=== PATIENT | female | born 1995 | race Two or more races ===

== ENCOUNTER 2022-02-26 04:44 | Emergency (ER) | payer MEDICAID ==
[~2022-02-26] VITALS: Ht 154.9 cm; Wt 79.4 kg
[2022-02-26] MEDS ORDERED: TDAP DIPH,PERTUSS,TET VAC/PF 0.5 ML DISP.SYRIN IM ONE ×2 (05:15→05:23)
[2022-02-26] MEDS ORDERED: LIDOCAINE 1%-EPI 1:100,000 20 ML VIAL IJ ONE (05:15)
[2022-02-26] MEDS ORDERED: SODIUM BICARBONATE 4.2 % (NEUT) 5 ML VIAL TP ONE (05:15)
[2022-02-26] MEDS ORDERED: CEphaleXIN 500 MG CAPSULE PO ONE (05:15)
[2022-02-26] MEDS ORDERED: LIDOCAINE 1%-EPI 1:100,000 20 ML VIAL ONE (05:18)
[2022-02-26] MEDS ORDERED: SODIUM BICARBONATE 4.2 % (NEUT) 5 ML VIAL ONE (05:20)
[2022-02-26] MEDS ORDERED: CEphaleXIN 500 MG CAPSULE ONE (05:23)
[2022-02-26] MEDS ORDERED: HYDR-4209 PO (05:26)
[2022-02-26] MEDS ORDERED: CEPH500T PO (05:26)
--- NOTE | 2022-02-26 06:14 | NUR ---
Patient discharged to home in stable condition. Written and verbal after care instructions given. Patient verbalizes understanding of instructions. Stressed follow up or return to ER for worsening s/s. patient is a/ox4, NAD noted. Patient is able to walk with steady gait
[2022-02-26 06:15] VITALS: BP 123/76
== END 2022-02-26 06:27 | disposition home or self-care (01) ==
LOC: ER 04:53
DX: S81.012A Laceration without foreign body, left knee, initial encounter (principal); W01.110A Fall on same level from slipping, tripping and stumbling with subsequent striking against sharp glass, initial encounter; Y92.89 Other specified places as the place of occurrence of the external cause; J45.909 Unspecified asthma, uncomplicated
CPT/HCPCS: 12002; 73564; 90471; 90715; 99283; J3490 ×2; A4663